=== PATIENT | female | born 1975 | race Caucasian/White ===

== ENCOUNTER → 2023-06-26 09:45 | Outpatient (REF) | payer OTHER, SELFPAY | LOC: DHSLP 09:45 | PROVIDERS: ATTENDING PHYSICIAN Internal Medicine; FAMILY PHYSICIAN Physician Assistant | DX: G47.30 Sleep apnea, unspecified (principal); G47.00 Insomnia, unspecified; R06.83 Snoring; G47.52 REM sleep behavior disorder | CPT/HCPCS: 95810 ==